=== PATIENT | male | born 1985 | race Caucasian/White ===

== ENCOUNTER 2022-05-06 15:06 | Emergency (ER) | payer OTHER ==
[~2022-05-06] VITALS: Ht 172.7 cm; Wt 92.5 kg
[2022-05-06 18:00] VITALS: BP 142/92
== END 2022-05-06 18:06 | disposition home or self-care (01) ==
LOC: M ED 15:06
DX: S30.0XXA Contusion of lower back and pelvis, initial encounter (principal); W01.0XXA Fall on same level from slipping, tripping and stumbling without subsequent striking against object, initial encounter; F17.200 Nicotine dependence, unspecified, uncomplicated

== ENCOUNTER 2022-05-18 13:43 | Inpatient (IN) | payer OTHER ==
[~2022-05-18] VITALS: Ht 172.7 cm; Wt 81.8 kg
[2022-05-18 14:13] LABS: HEMATOCRIT 47.8 % (42.0-52.0); HEMOGLOBIN 16.3 g/dl (13.5-17.5); MEAN CORPUSCULAR HEMOGLOBIN 31.2 pg (27.0-33.0); MEAN CORPUSCULAR HGB CONC 34.1 g/dl (32.0-36.5); MEAN CORPUSCULAR VOLUME 91.4 fl (80.0-96.0); PLATELET COUNT, AUTOMATED 214 10^3/uL (150-450); RED BLOOD COUNT 5.23 10^6/uL (4.30-6.10)
[2022-05-18 14:32] LABS: SALICYLATE LEVEL < 3.0 MG/DL (<30)
[2022-05-18 14:33] LABS: ACETAMINOPHEN LEVEL < 2.0 UG/ML (10.0-20.0); ALBUMIN 4.3 G/DL (3.2-5.2); ALKALINE PHOSPHATASE 76 U/L (46-116); ALT/SGPT 60 U/L (7.0-40); AST/SGOT 40 U/L (<34); BILIRUBIN,DIRECT 0.1 MG/DL (<0.4); BILIRUBIN,TOTAL 0.4 MG/DL (0.3-1.2); BLOOD UREA NITROGEN 12 MG/DL (9-23); CALCIUM LEVEL 8.6 MG/DL (8.5-10.1); CARBON DIOXIDE LEVEL 28 MMOL/L (20-31); CHLORIDE LEVEL 105 MMOL/L (98-107); CREATININE FOR GFR 0.84 MG/DL (0.70-1.30); GLOMERULAR FILTRATION RATE > 60.0 (>60); GLUCOSE, FASTING 89 MG/DL (60-100); POTASSIUM SERUM 4.1 MMOL/L (3.5-5.1); SODIUM LEVEL 143 MMOL/L (136-145); TOTAL PROTEIN 6.9 G/DL (5.7-8.2)
[2022-05-18 14:35] LABS: THYROID STIMULATING HORMONE 0.538 uIU/ML (0.55-4.78)
[2022-05-18 14:48] LABS: ETHYL ALCOHOL (ETHANOL) 0.334 % (0.000-0.010)
[2022-05-18 15:32] LABS: AMPHETAMINES LEVEL URINE NEGATIVE (NEGATIVE); BARBITURATES URINE NEGATIVE (NEGATIVE); BENZODIAZEPINES URINE NEGATIVE (NEGATIVE); COCAINE METABOLITE URINE NEGATIVE (NEGATIVE)
[2022-05-18 15:33] LABS: CANNABINOIDS URINE NEGATIVE (NEGATIVE); METHADONE URINE NEGATIVE (NEGATIVE); OPIATES URINE NEGATIVE (NEGATIVE); PHENCYCLIDINE URINE NEGATIVE (NEGATIVE)
[2022-05-18 15:45] LABS: RSV AMPLIFICATION NEGATIVE (NEGATIVE)
[2022-05-18] MEDS: THIAMINE 100 MG TAB PO SCH (21:00)
[2022-05-19] VITALS (7 sets, daily range): BP systolic 130–156; BP diastolic 71–104
[2022-05-19] MEDS ORDERED: MAALOX 30 ML SUSP *UDC PO PRN (01:15)
[2022-05-19] MEDS ORDERED: LORazepam 2 MG TAB PO PRN (01:15)
[2022-05-19] MEDS ORDERED: ACETAMINOPHEN TAB 650MG DOSE (2X325MG) PO PRN (01:15)
[2022-05-19] MEDS ORDERED: MOM 30ML SUSPENSION UDC PO PRN (01:15)
[2022-05-19] MEDS ORDERED: SERT50TA29 PO (01:31)
[2022-05-19] MEDS ORDERED: lorazepam (01:31)
[2022-05-19] MEDS ORDERED: prazosin (01:31)
[2022-05-19] MEDS ORDERED: HOME MED LIST COMPLETE! XX SCH (01:35)
[2022-05-19] MEDS: FOLIC ACID 1MG TAB PO SCH (08:57)
[2022-05-19] MEDS: THIAMINE 100 MG TAB PO SCH ×2 (08:57→20:00)
[2022-05-19] MEDS: MULTIVITAMINS/MINERALS THERAP 1 TAB PO SCH (08:57)
[2022-05-19] MEDS: NICOTINE 21MG/24HR 1 EA TRANSDERMAL TD SCH (08:57)
[2022-05-19] MEDS ORDERED: PRAZ1CAP PO (16:00)
[2022-05-19] MEDS: PRAZOSIN 1 MG CAP PO SCH (20:03)
[2022-05-19] MEDS: traZODone 50 MG TAB PO PRN (22:52)
[2022-05-20 05:45] VITALS: BP 143/83
[2022-05-20] MEDS: MULTIVITAMINS/MINERALS THERAP 1 TAB PO SCH (09:32)
[2022-05-20] MEDS: NICOTINE 21MG/24HR 1 EA TRANSDERMAL TD SCH (09:32)
[2022-05-20] MEDS: THIAMINE 100 MG TAB PO SCH ×2 (09:32→20:45)
[2022-05-20] MEDS: SERTRALINE HCL 50 MG TAB PO SCH (09:32)
[2022-05-20] MEDS: FOLIC ACID 1MG TAB PO SCH (09:32)
[2022-05-20 13:45] VITALS: BP 138/98
[2022-05-20] MEDS: LORazepam 1 MG TAB PO PRN (16:18)
[2022-05-20 20:32] VITALS: BP 140/88
[2022-05-20] MEDS: PRAZOSIN 1 MG CAP PO SCH (20:44)
[2022-05-20] MEDS: traZODone 50 MG TAB PO PRN (20:45)
[2022-05-21 06:03] VITALS: BP 119/66
[2022-05-21] MEDS: SERTRALINE HCL 50 MG TAB PO SCH (08:10)
[2022-05-21] MEDS: NICOTINE 21MG/24HR 1 EA TRANSDERMAL TD SCH (08:10)
[2022-05-21] MEDS: THIAMINE 100 MG TAB PO SCH ×2 (08:10→20:41)
[2022-05-21] MEDS: LORazepam 1 MG TAB PO PRN (10:49)
[2022-05-21 17:31] VITALS: BP 140/72
[2022-05-21 20:41] VITALS: BP 136/78
[2022-05-21] MEDS: PRAZOSIN 1 MG CAP PO SCH (20:41)
[2022-05-21] MEDS: traZODone 50 MG TAB PO PRN (21:08)
[2022-05-22 06:37] VITALS: BP 118/71
[2022-05-22] MEDS: NICOTINE 21MG/24HR 1 EA TRANSDERMAL TD SCH (07:55)
[2022-05-22] MEDS: THIAMINE 100 MG TAB PO SCH (07:55)
[2022-05-22] MEDS: SERTRALINE HCL 50 MG TAB PO SCH (07:55)
[2022-05-22] MEDS ORDERED: NICO21PAT TD (08:34)
[2022-05-22] MEDS ORDERED: MINI1CAP PO (08:34)
[2022-05-22] MEDS ORDERED: TRAZ-252 PO (08:34)
[2022-05-22] MEDS ORDERED: SERT50TA29 PO (08:34)
== END 2022-05-22 13:50 | disposition home or self-care (01) | DRG 882 ==
LOC: M ED 13:43 → M ED INP 05-19 01:15 → M PSY 05-19 03:50
PROVIDERS: ADMIT Student in an Organized Health Care Education/Training Program; ATTEND Student in an Organized Health Care Education/Training Program
DX: F43.25 Adjustment disorder with mixed disturbance of emotions and conduct (principal); F10.94 Alcohol use, unspecified with alcohol-induced mood disorder; F43.10 Post-traumatic stress disorder, unspecified; Z20.822 Contact with and (suspected) exposure to COVID-19; Z79.899 Other long term (current) drug therapy; Z63.8 Other specified problems related to primary support group; F17.200 Nicotine dependence, unspecified, uncomplicated; Z91.82 Personal history of military deployment

== ENCOUNTER 2023-08-05 21:30 | Emergency (ER) | payer OTHER ==
[~2023-08-05] VITALS: Ht 172.7 cm; Wt 86.4 kg
[~2023-08-05 21:30] MED LIST: MINI1CAP PO; NICO21PAT TD; PRAZ1CAP PO; SERT50TA29 PO; TRAZ-252 PO; lorazepam; prazosin
[2023-08-05 21:31] VITALS: TEMP 99.1
[2023-08-05] MEDS: ONDANSETRON 4MG 2ML VIAL IV ONE (22:25)
[2023-08-05] MEDS: PANTOPRAZOLE 40MG VIAL IV ONE (22:28)
[2023-08-05 22:30] LABS: BASO # 0.1 10^3/uL (0.0-0.2); BASO % 0.8 % (0.0-1.0); EOS % 0.3 % (0.0-3.0); HEMATOCRIT 44.7 % (42.0-52.0); HEMOGLOBIN 15.9 g/dl (13.5-17.5); LYMPH # 1.5 10^3/uL (1.5-5.0); LYMPH % 23.8 % (24.0-44.0); MEAN CORPUSCULAR HEMOGLOBIN 32.6 pg (27.0-33.0); MEAN CORPUSCULAR HGB CONC 35.6 g/dl (32.0-36.5); MEAN CORPUSCULAR VOLUME 91.6 fl (80.0-96.0); MONO # 0.7 10^3/uL (0.0-0.8); MONO % 11.2 % (2.0-8.0); NEUTROPHILS % 63.7 % (36.0-66.0); PLATELET COUNT, AUTOMATED 179 10^3/uL (150-450); RED BLOOD COUNT 4.88 10^6/uL (4.30-6.10); WHITE BLOOD COUNT 6.2 10^3/uL (4.0-10.0)
[2023-08-05 23:20] LABS: ALBUMIN 4.5 G/DL (3.2-5.2); BILIRUBIN,DIRECT 0.2 MG/DL (<0.4); BILIRUBIN,TOTAL 0.8 MG/DL (0.3-1.2); TOTAL PROTEIN 7.2 G/DL (5.7-8.2)
[2023-08-06] MEDS ORDERED: ESOM1CAP5 PO (00:37)
[2023-08-06] MEDS ORDERED: CARA1TAB6 PO (00:37)
[2023-08-06 00:55] VITALS: BP 130/90; O2SAT 98
== END 2023-08-06 01:01 | disposition home or self-care (01) ==
LOC: M ED 21:30
DX: K92.0 Hematemesis (principal); K76.0 Fatty (change of) liver, not elsewhere classified; K21.9 Gastro-esophageal reflux disease without esophagitis; F43.10 Post-traumatic stress disorder, unspecified; F17.200 Nicotine dependence, unspecified, uncomplicated; F10.10 Alcohol abuse, uncomplicated; Z79.810 Long term (current) use of selective estrogen receptor modulators (SERMs); Z79.83 Long term (current) use of bisphosphonates; Z79.899 Other long term (current) drug therapy
CPT/HCPCS: 76705; 80047; 80076; 83690; 85025; 96374; 96375; 99284; C9113; J2405

== ENCOUNTER 2023-12-30 03:32 | Emergency (ER) | payer OTHER ==
[~2023-12-30] VITALS: Ht 175.3 cm; Wt 91.2 kg
[~2023-12-30 03:32] MED LIST changes: +CARA1TAB6 PO; +ESOM1CAP20 PO
[2023-12-30] MEDS: ASPIRIN 81MG CHEW TABLET PO ONE (04:09)
[2023-12-30] MEDS: NITROGLYCERIN 0.4MG SUBL TABLET SL PRN (04:12)
[2023-12-30 04:19] LABS: BASO # 0.1 10^3/uL (0.0-0.2); BASO % 0.9 % (0.0-1.0); EOS # 0.1 10^3/uL (0.0-0.5); HEMATOCRIT 45.8 % (42.0-52.0); HEMOGLOBIN 16.1 g/dl (13.5-17.5); LYMPH # 3.1 10^3/uL (1.5-5.0); LYMPH % 46.4 % (24.0-44.0); MEAN CORPUSCULAR HEMOGLOBIN 32.1 pg (27.0-33.0); MEAN CORPUSCULAR HGB CONC 35.2 g/dl (32.0-36.5); MEAN CORPUSCULAR VOLUME 91.2 fl (80.0-96.0); MONO # 0.6 10^3/uL (0.0-0.8); MONO % 8.8 % (2.0-8.0); NEUTROPHILS # 2.7 10^3/uL (1.5-8.5); NEUTROPHILS % 41.4 % (36.0-66.0); PLATELET COUNT, AUTOMATED 184 10^3/uL (150-450); RED BLOOD COUNT 5.02 10^6/uL (4.30-6.10); WHITE BLOOD COUNT 6.6 10^3/uL (4.0-10.0)
[2023-12-30 04:23] VITALS: BP 156/73
[2023-12-30 04:31] LABS: INR 0.9; PROTHROMBIN TIME 11.9 SECONDS (12.5-14.5)
[2023-12-30 04:42] LABS: CK-MB VALUE MASS < 1.0 NG/ML (<3.6); LIPASE 36 U/L (12-53)
[2023-12-30 04:44] LABS: ALBUMIN 4.1 G/DL (3.2-5.2); ALKALINE PHOSPHATASE 88 U/L (46-116); ALT/SGPT 68 U/L (7.0-40); AST/SGOT 43 U/L (<34); BILIRUBIN,DIRECT < 0.1 MG/DL (<0.4); BILIRUBIN,TOTAL 0.3 MG/DL (0.3-1.2); BLOOD UREA NITROGEN 15 MG/DL (9-23); CALCIUM LEVEL 8.8 MG/DL (8.5-10.1); CARBON DIOXIDE LEVEL 24 MMOL/L (20-31); CHLORIDE LEVEL 111 MMOL/L (98-107); CREATININE FOR GFR 0.86 MG/DL (0.70-1.30); GLOMERULAR FILTRATION RATE > 60.0 (>60); GLUCOSE, FASTING 107 MG/DL (60-100); POTASSIUM SERUM 4.1 MMOL/L (3.5-5.1); SODIUM LEVEL 142 MMOL/L (136-145); TOTAL PROTEIN 7.1 G/DL (5.7-8.2)
[2023-12-30 05:10] LABS: CPK CREATINE PHOSPHOKINASE 160 U/L (46-171); MB/CK RELATIVE INDEX 0.62 (< OR =4)
[2023-12-30] MEDS: KETOROLAC 30 MG/ML 1ML VIAL IV ONE (05:57)
[2023-12-30] MEDS ORDERED: ISOVUE-370 76% 100ML VIAL As Ordered ONE (06:40)
[2023-12-30 06:52] VITALS: TEMP 97.6
[2023-12-30 07:35] VITALS: BP 152/72; O2SAT 95
[2023-12-30] MEDS ORDERED: NAPR-837 PO (07:40)
== END 2023-12-30 08:07 | disposition home or self-care (01) ==
LOC: M ED 03:32
DX: R07.89 Other chest pain (principal); K21.9 Gastro-esophageal reflux disease without esophagitis; F43.10 Post-traumatic stress disorder, unspecified; F41.9 Anxiety disorder, unspecified; F32.A Depression, unspecified; K59.00 Constipation, unspecified; K76.0 Fatty (change of) liver, not elsewhere classified; F17.200 Nicotine dependence, unspecified, uncomplicated; Z79.899 Other long term (current) drug therapy
CPT/HCPCS: 71045; 71275; 80048; 80076; 82550; 82553; 83690; 84484; 85025; 85610; 93005; 96374; 99284; J1885; Q9967

== ENCOUNTER → 2024-04-07 | Outpatient (CLI) | payer OTHER ==
[~2024-04-07] MED LIST changes: +NAPR-837 PO
== END ==
LOC: M PLAIMG 08:07
PROVIDERS: ATTEND Internal Medicine Pulmonary Disease
DX: J98.09 Other diseases of bronchus, not elsewhere classified (principal); K76.0 Fatty (change of) liver, not elsewhere classified